=== PATIENT | male | born 1965 ===

== ENCOUNTER 2020-09-26 07:56 | Emergency (ER) | payer SELFPAY ==
--- NOTE | 2020-09-26 08:06 | ED.GENADUL_ITS ---
Discharge Plan Disposition Patient Disposition: HOME Condition: Stable Discharge Details Clinical Impression: Abrasion, Friction blisters of sole of left foot Primary Care Provider: None,None ED Provider: Arsh Ya Home Meds and New Rx's Prescriptions: No Action No Known Home Meds RF: 0 Discharge Instructions Instructions: Abrasion (ED), Blister (ED) Additional Instructions: At this time you have been provided a medical screening examination, no obvious emergent process identified. You were fed to breakfast and a single sandwich. Your feet were soaked, clean, and you are provided with dry socks. At this time you have no additional medical concerns or complaints. Please watch for new or worsening symptoms and return to the ER for any concerns. I do recommend that you follow-up with a primary care provider once you return to [place]. Medical Decision Making 55-year-old gentleman who reports that he is traveling from the [facility] down to [place]. He was laying on the side of the road taking a break and was brought to the ER for evaluation. Patient was given 2 breakfast trays and then later a sandwich. His feet were soaked in warm water and Epsom salt and then dressed in Shilo cream. Patient was ambulatory to the restroom without difficulty. Again there are no signs of cellulitis to his of bilateral feet or any abrasions to his face. Patient has no additional medical concerns or complaints. He is requesting that he is allowed to nap here in the ER. He will be able to rest here in the ER until care management is able to come talk with him, his primary concern is getting a ticket to [place]. Care management evaluate the patient, please see their note. Patient at this time will be discharged from the ER, he was given an extra pair of clean dry socks and he declined the remaining Shilo cream. Upon discharge, he is going to later in exam room 10 for care management to come down to discuss options with him. Care management contacted community connections regarding the potential transportation assistance to [place] but currently waiting on a phone call. Patient comfortable with this plan and has no additional questions or concerns. Ambulate steadily to room 10 upon discharge from the ER HPI General Mode of arrival: EMS . Date/Time Provider Initiated Documentation: 09/26/20 08:06 . Limitations to Documentation: no limitations . Information obtained by: patient and EMS . HPI Narrative: This is a 55-year-old gentleman who presents to the ER via EMS. He states that he is [place] down to [place] where he resides. He is getting there primarily by walking. States that this morning he was laying by the side of the road taking a break when a bystander contacted EMS. EMS presented to scene and he was agreeable to coming to the ER for evaluation. Patient is primarily concerned with eating breakfast and taking a nap. He denies any emergent medical issues at the moment states that he does have some blisters on his feet that he would like treated and he does have some old abrasions to his face. Patient admits to smoking cigarettes daily but denies any alcohol or drug use. He denies any chronic medical problems. He denies recent illness or trauma. Patient has no additional concerns or complaints at this time. Related Data Home Medications Medication Instructions Recorded Confirmed Unknown [No Known Home Meds] 09/26/20 09/26/20 Allergies Allergy/AdvReac Type Severity Reaction Status Date / Time No Known Allergies Allergy Unverified 09/26/20 08:07 Review of Systems Constitutional Constitutional: Denies fatigue, Denies fever(s), Denies headache(s) and Denies weakness ENT Ears, Nose, Mouth, and Throat: Denies headache(s) and Denies neck pain Cardiovascular Cardiovascular: Denies chest pain and Denies dyspnea Respiratory Respiratory: Denies cough and Denies dyspnea Gastrointestinal Gastrointestinal: Denies abdominal pain, Denies nausea and Denies vomiting Musculoskeletal Musculoskeletal: Denies back pain, Denies neck pain and Denies tingling Integumentary/Breasts Skin/Breast: Denies rash Neurologic Neurologic: Denies headache(s), Denies tingling and Denies weakness Endocrine Endocrine: Denies fatigue [facility] Social History Smoking/Tobacco Use Status: Current, status unknown Smoking risk assessment performed?: Yes Substance use type: does not use Do you feel safe at home: Yes Do you feel safe in your relationship?: Yes Exam Const General: cooperative, comfortable, no acute distress and disheveled Orientation: alert, awake, oriented to person, oriented to place and oriented to time (Late August 2020) [facility] Head: no palpable skull fracture and normocephalic Ears: hearing grossly normal bilaterally Face images: 1. Well-healing abrasion 2. Well-healing abrasion Mouth: oral mucosae normal Throat: posterior oropharynx normal Eyes General: appearance normal, both eyes and all related structures Alignment and Position: alignment normal Periorbital: periorbital findings normal Eyelids: eyelids normal Conjunctivae: conjunctivae normal Sclera: sclerae normal Cornea: corneas normal Pupils: PERRL EOM: EOM intact bilaterally Direct ophthalmoscopy: normal light reflex Neck Neck: normal visual inspection, full ROM, trachea midline, supple and nontender Resp Effort & Inspection: normal respiratory effort and able to speak in complete sentences Auscultation: clear to auscultation bilaterally Cardio Rate: regular rate Rhythm: regular rhythm GI Palpation: soft and nontender Back/Spine/Pelvis Back: No back tenderness Skin General skin exam: no rashes or lesions noted Neuro General: patient alert, patient awake and patient oriented x3 Cranial Nerves: CN's II-XI intact bilaterally Cognition: normal cognition Gait: normal gait Motor: muscle tone normal throughout Sensory Exam: no sensory deficits noted Extrem General: full ROM and capillary refill normal Right upper extremity: normal to inspection, full ROM and normal capillary refill Left upper extremity: normal to inspection, full ROM and normal capillary refill Right lower extremity: full ROM and normal capillary refill Left lower extremity: full ROM and normal capillary refill Other: Patient has multiple blisters to bilateral feet. Blisters are primarily along the sole and lateral aspect of the feet. Blisters are both intact and ruptured. There is no erythema, warmth, signs of infection. The highest distribution of blistering is along the distal sole of the left foot. Normal capillary refill. Neuro, vascular, tendon intact. No evidence of trench foot
[2020-09-26 08:08] VITALS: BP 98/65; PULSE 58; RESP 18; TEMP 36.9; O2SAT 100
[2020-09-26 09:52] VITALS: BP 109/61; PULSE 70; RESP 18; TEMP 36.5; O2SAT 98
--- NOTE | 2020-09-26 17:15 | CMPROGNOTE_ITS ---
- If Service Date Differs Date of service: 09/26/20 Time of Service: 17:15 Care Management Progress Note Andrés presents in the ED for abrasion and friction blisters of sole of left foot. Nalini Chan, intensive care anaesthetist, who met with patient earlier, contacted [facility] this morning to enlist their assistance in obtaining a bus ticket to [place] for patient. This afternoon, arranges for a motel room at the [facility] in [place], [place], as it is located across the street from the bus stop. obtains the bus ticket from [facility] and delivers it to [facility] with instructions to spend the night at the mot and to get on the bus to [place] tomorrow at 12:30 pm. then contacts [facility] and arranges a ride for patient from [facility] to the [facility], where he will spend the night. Elizabeth, ED mosaic technician, provides Andrés with sandwiches, chips, and soda, so he has food to eat this evening.
--- NOTE | 2020-09-26 17:15 | PDOC.ERCMPRO ---
- If Service Date Differs Date of service: 09/26/20 Time of Service: 17:15 Care Management Progress Note Andrés presents in the ED for abrasion and friction blisters of sole of left foot. Nalini Chan, care asst, who met with patient earlier, contacted [facility] this morning to enlist their assistance in obtaining a bus ticket to [place] for patient. This afternoon, arranges for a motel room at the [facility] in [place], [place], as it is located across the street from the bus stop. obtains the bus ticket from [facility] and delivers it to [facility] with instructions to spend the night at the mot and to get on the bus to [place] tomorrow at 12:30 pm. then contacts [facility] and arranges a ride for patient from [facility] to the [facility], where he will spend the night. Elizabeth, ED sewer and drain technician, provides Andrés with sandwiches, chips, and soda, so he has food to eat this evening.
== END 2020-09-26 10:58 | disposition home or self-care (01) ==
PROVIDERS: Emergency Provider Physician Assistant
DX: S90.822A Blister (nonthermal), left foot, initial encounter (principal); S90.821A Blister (nonthermal), right foot, initial encounter; S00.81XA Abrasion of other part of head, initial encounter; X58.XXXA Exposure to other specified factors, initial encounter; Y93.01 Activity, walking, marching and hiking; R53.83 Other fatigue
CPT/HCPCS: 99283